=== PATIENT | female | born 1995 | race Caucasian/White ===

== ENCOUNTER 2022-01-22 05:05 | Inpatient (IN) ==
[2022-01-22] MEDS ORDERED: FAMOTIDINE 20 MG/2 ML VIAL IV ONE (05:53)
[2022-01-22] MEDS ORDERED: miSOPROStoL 200 MCG TABLET RECTAL PRN (05:53)
[2022-01-22] MEDS ORDERED: OXYTOCIN/LR 20 UNIT/1,000 ML BAG IV ONE ×2 (05:53→09:12)
[2022-01-22] MEDS ORDERED: CITRIC ACID/SODIUM CITRATE 30 ML UDCUP PO ONE (05:53)
[2022-01-22] MEDS ORDERED: METHYLERGONOVINE 0.2 MG/1 ML AMP IM PRN (05:53)
[2022-01-22] MEDS ORDERED: ceFAZolin 2,000 MG/50 ML DUPLEX IV ONE (05:53)
[2022-01-22] MEDS ORDERED: TRANEXAMIC ACID 1,000 MG in SODIUM CHLORIDE 0.9% 100 ML IV PRN (05:53)
[2022-01-22] MEDS ORDERED: CARBOPROST TROMETHAMINE 250 MCG/ML AMP IM PRN (05:53)
[2022-01-22] MEDS: LACTATED RINGERS 1,000 ML IV SCH ×3 (06:27→11:25)
[2022-01-22 06:45] LABS: Basophils # 0.1 10*3/uL (0.0-0.2); Basophils % 0.6 % (0.0-0.8); Eosinophils # 0.1 10*3/uL (0.0-0.87); Eosinophils % 0.5 % (0.00-10.9); Hemoglobin 10.7 GM/DL (12.0-16.0); Immature Granulocytes % 0.4 %; Immature Granulocytes Absolute 0.04 #; Lymphocytes # 3.4 10*3/uL (1.4-4.0); Lymphocytes % 29.5 % (21.3-54.2); Mean Corpuscular HGB Conc 31.5 GM/DL (32-36); Mean Corpuscular Volume 91.2 FL (87-102); Mean Platelet Volume 10.9 FL (9.6-12.0); Monocytes # 0.9 10*3/uL (0.11-0.8); Monocytes % 7.9 % (1.7-12.7); Neutrophils % 61.1 % (38.7-73.9); Platelet Count 243 T/CUMM (130-400); Red Blood Count 3.73 MC/CUMM (3.8-5.5); Red Cell Distribution Width 13.3 % (9.3-17.3); White Blood Count 11.4 T/CUMM (4-12)
[2022-01-22] MEDS ORDERED: ACETAMINOPHEN INJ 1,000 MG/100 ML VIAL IV ONE (07:46)
[2022-01-22] MEDS ORDERED: BUPIVACAINE SPINAL 0.75% 2 ML AMP SPINAL ONE (07:46)
[2022-01-22] MEDS ORDERED: KETOROLAC 30 MG/1 ML VIAL ONE (07:46)
[2022-01-22] MEDS ORDERED: ONDANSETRON 4 MG/2 ML VIAL ONE (07:46)
[2022-01-22] MEDS ORDERED: buprenorphine HCL 0.3 MG/ML VIAL ONE (07:46)
[2022-01-22] MEDS ORDERED: DEXAMETHASONE 4 MG/1 ML VIAL ONE (08:08)
[2022-01-22] MEDS ORDERED: PHENYLEPHRINE 1 MG/10 ML SYRINGE IV ONE ×2 (08:08→08:30)
[2022-01-22 08:38] LABS: Cord Arterial Blood HCO3 20.5 MMOL/L
[2022-01-22 08:41] LABS: Cord Venous Blood HCO3 20.9 MMOL/L; Cord Venous Blood PCO2 51.4 MMHG; Cord Venous Blood PO2 24.1
[2022-01-22 08:41] LABS: Bilirubin,Urine Negative (Negative); Blood, Urine Negative (Negative); Glucose,Urine (UA) Negative (Negative); Ketones,Urine Negative (Negative); Nitrite,Urine Negative (Negative); Protein,Urine Negative (Negative); RBC,Urine <1 /HPF (0-4); Squamous Epithelial Cell,Urine Occasional /HPF (0-10); Urine Appearance Clear (Clear); Urine Color Yellow (Yellow); Urine Specific Gravity 1.015 (1.001-1.035); Urine Urobilinogen 0.2 eU/dL (<2.0)
[2022-01-22] MEDS ORDERED: ACETAMINOPHEN 325 MG TABLET PO PRN (09:12)
[2022-01-22] MEDS ORDERED: ONDANSETRON 4 MG/2 ML VIAL IV PRN (09:12)
[2022-01-22] MEDS ORDERED: MAGNESIUM HYDROXIDE SUSP 30 ML UDCUP PO PRN (09:12)
[2022-01-22] MEDS ORDERED: RHO(D) IMMUNE GLOBULIN 300 MCG SYRINGE IM ONE (09:12)
[2022-01-22] MEDS ORDERED: LACTATED RINGERS 1,000 ML IV SCH (09:30)
[2022-01-22] MEDS ORDERED: KETOROLAC 30 MG/1 ML VIAL IV SCH (13:00)
[2022-01-22] MEDS ORDERED: ACETAMINOPHEN 500 MG TABLET PO SCH (13:00)
[2022-01-22] MEDS ORDERED: KETOROLAC 30 MG/1 ML VIAL IV PRN (14:30)
[2022-01-22] MEDS ORDERED: ACETAMINOPHEN 500 MG TABLET PO PRN (14:30)
[2022-01-22] MEDS: KETOROLAC 30 MG/1 ML VIAL IV SCH ×2 (14:56→21:00)
[2022-01-22] MEDS: ACETAMINOPHEN 500 MG TABLET PO SCH ×2 (14:57→21:00)
[2022-01-22] MEDS: DOCUSATE SODIUM 100 MG CAPSULE PO SCH (21:00)
[2022-01-23] MEDS: oxyCODONE/ACETAMINOPHEN 5-325 MG TABLET PO PRN ×4 (01:22→20:30)
[2022-01-23] MEDS: ACETAMINOPHEN 500 MG TABLET PO SCH ×2 (02:02→08:30)
[2022-01-23] MEDS: KETOROLAC 30 MG/1 ML VIAL IV SCH (02:45)
[2022-01-23] MEDS: SIMETHICONE CHEW 80 MG TABLET PO PRN ×2 (02:46→17:04)
[2022-01-23 05:08] LABS: Basophils # 0.1 10*3/uL (0.0-0.2); Basophils % 0.4 % (0.0-0.8); Eosinophils % 0.1 % (0.00-10.9); Hematocrit 27.4 VOL% (35.7-47.0); Hemoglobin 8.7 GM/DL (12.0-16.0); Immature Granulocytes % 0.5 %; Immature Granulocytes Absolute 0.07 #; Lymphocytes # 3.1 10*3/uL (1.4-4.0); Lymphocytes % 22.7 % (21.3-54.2); Mean Corpuscular HGB Conc 31.8 GM/DL (32-36); Mean Platelet Volume 10.6 FL (9.6-12.0); Monocytes % 7.4 % (1.7-12.7); Neutrophils % 68.9 % (38.7-73.9); Platelet Count 239 T/CUMM (130-400); Red Blood Count 3.01 MC/CUMM (3.8-5.5); Red Cell Distribution Width 13.4 % (9.3-17.3); White Blood Count 13.8 T/CUMM (4-12)
[2022-01-23] MEDS ORDERED: SERTRALINE 50 MG TABLET PO SCH (09:00)
[2022-01-23] MEDS ORDERED: IRON (CARBONYL)/VIT C/B12/FA TABLET PO SCH (09:00)
[2022-01-23] MEDS: DOCUSATE SODIUM 100 MG CAPSULE PO SCH ×2 (09:10→21:25)
[2022-01-23] MEDS: FERROUS SULFATE 325 MG TABLET PO SCH ×2 (09:10→21:25)
[2022-01-23] MEDS: MULTIVITAMIN (PRENATAL) TABLET PO SCH (09:11)
[2022-01-23] MEDS: FLUoxetine 20 MG CAPSULE PO SCH (09:11)
[2022-01-23] MEDS: IBUPROFEN 800 MG TABLET PO PRN ×2 (09:12→17:03)
[2022-01-23] MEDS ORDERED: ALUMINUM/MAGNES/SIMETH MAX STR 30 ML UDCUP PO PRN (21:02)
[2022-01-24] MEDS ORDERED: BISACODYL 10 MG SUPP RECTAL ONE (00:32)
[2022-01-24] MEDS: IBUPROFEN 800 MG TABLET PO PRN (00:38)
[2022-01-24 07:15] VITALS: BP 113/56
[2022-01-24] MEDS: MULTIVITAMIN (PRENATAL) TABLET PO SCH (08:06)
[2022-01-24] MEDS: FERROUS SULFATE 325 MG TABLET PO SCH (08:07)
[2022-01-24] MEDS: DOCUSATE SODIUM 100 MG CAPSULE PO SCH (08:07)
[2022-01-24] MEDS: FLUoxetine 20 MG CAPSULE PO SCH (08:07)
[2022-01-24] MEDS: oxyCODONE/ACETAMINOPHEN 5-325 MG TABLET PO PRN (08:08)
== END 2022-01-24 13:20 | disposition home or self-care (01) | DRG 785 ==
LOC: N.LD 05:05 → N.OB 12:17
PROVIDERS: ADMIT Obstetrics & Gynecology; ATTEND Obstetrics & Gynecology